=== PATIENT | female | born 1995 | race African-American/Black ===

== ENCOUNTER 2024-03-19 16:22 | Emergency (ER) | payer BC, SELFPAY ==
--- NOTE | ~2024-03-19 | US_ITS ---
EXAMINATION: US OB <= 14 weeks fetus DATE: 03/19/2024 19:00 YOGA COORDINATOR INDICATION: Abdominal pain with a positive test. Ectopic suspected clinically. COMPARISON: None TECHNIQUE: Real-time transabdominal obstetric ultrasound. FINDINGS: 4 para 0 Last menstrual period is given as 01/25/2024 for an estimated date of delivery of 10/31/2024 The uterus measures 9.6 x 9.2 x 8.5 cm. A gestational sac is identified within the uterus. A pole is identified, with a crown-rump length that measures 3.7 cm, corresponding to an approx imate gestational age of 10 weeks and 4 days. cardiac activity is identified at a rate of 165 - 167 bpm. Subchorionic hemorrhage is identified measuring 3.6 x 1.3 x 2.2 cm. The right ovary measures 3.2 x 2.4 x 2.1 cm. The left ovary measures 1.4 x 1.4 x 2.2 cm. Estimated date of delivery by ultrasound is 10/13/2024 IMPRESSION: Single intrauterine gestation with an approximate gestational age of 10 weeks and 4 days, with cardiac activity identified. Large subchorionic hemorrhage (measuring 3.6 cm in greatest dimension) for which short-term follow-up is recommended. Reviewed, dictated and finalized at location A. COORDINATOR IMPRESSION: Single intrauterine gestation with an approximate gestational age of 10 weeks a nd 4 days, with cardiac activity identified. Large subchorionic hemorrhage (measuring 3.6 cm in greatest dimension) for whic h short-term follow-up is recommended.
[2024-03-19 16:50] VITALS: BP 104/75; PULSE 95; RESP 20; TEMP 36.8; O2SAT 100
[2024-03-19 17:06] VITALS: PULSE 93; RESP 18; O2SAT 100
--- NOTE | 2024-03-19 17:06 | ED_ITS ---
HPI - Abdominal Pain General Chief Complaint: Abdominal Pain <Phyllis Nixon INTERIOR DESIGN ASSISTANT - Last Filed: 03/19/24 17:07> Stated Complaint: lower back/abd pain x1w <Phyllis Nixon APRN - Last Filed: 03/19/24 17:07> Time Seen by Provider: 03/19/24 16:45 <Phyllis Nixon INTERIOR DESIGN ASSISTANT - Last Filed: 03/19/24 17:07> Focused HPI: Patient is a 28-year-old female who presents to the ER with a one-week history of abdominal pain and back pain. She denies any urinary symptoms or vaginal discharge. Patient reports she has a history of osteomyelitis where ?they took my jaw bone and put it in my leg. She also endorses diarrhea for the past week. Patient denies chance of . She denies any recent sick contacts. Patient denies back pain, chest pain, shortness of breath, recent fevers. GENERAL: Well-appearing, well-nourished, and in no acute distress. HEAD: Normocephalic, atraumatic. CHEST: Clear to auscultation. ?No respiratory distress. HEART: Regular rate and rhythm.? NEURO: ?Alert and oriented x3. Patient screened in triage and initial orders placed.? ?Additional care and disposition to be based upon?diagnostic testing and treatment. <Phyllis Nixon INTERIOR DESIGN ASSISTANT - Last Filed: 03/19/24 17:07> Focused HPI: Patient is a 28-year-old female who presents to the ER with a one-week history of abdominal pain and back pain. She denies any urinary symptoms or vaginal discharge. Patient reports she has a history of osteomyelitis where ?they took my jaw bone and put it in my leg. She also endorses diarrhea for the past week. Patient denies chance of . She denies any recent sick contacts. Patient denies back pain, chest pain, shortness of breath, recent fevers. GENERAL: Well-appearing, well-nourished, and in no acute distress. HEAD: Normocephalic, atraumatic. CHEST: Clear to auscultation. ?No respiratory distress. HEART: Regular rate and rhythm.? NEURO: ?Alert and oriented x3. Patient screened in triage and initial orders placed.? ?Additional care and disposition to be based upon?diagnostic testing and treatment. <Jill Holman PA-C - Last Filed: 03/19/24 21:09> Source: patient <Jill SpencerAbhi UNRULY Holman - Last Filed: 03/19/24 21:09> Mode of arrival: ambulatory <Jill Holman PA-C - Last Filed: 03/19/24 21:09> Limitations: no limitations <Jill Holman PA-C - Last Filed: 03/19/24 21:09> History of Present Illness HPI narrative: Agree with above HPI. Reports lower abdominal and lower back pain. Has not taken anything for pain. <UNRULY Wilson Last Filed: 03/19/24 21:09> Related Data Allergies/Adverse Reactions: Allergies Allergy/AdvReac Type Severity Reaction Status Date / Time No Known Allergies Allergy Verified 03/19/24 17:00 <Phyllis Nixon APRN - Last Filed: 03/19/24 17:07> Review of Systems 2 Review of Systems: All systems reviewed & are unremarkable except as noted in HPI. <Jill Holman PA-C - Last Filed: 03/19/24 21:09> All systems reviewed & are unremarkable except as noted in HPI and below < Jill Holman PA-C - Last Filed: 03/19/24 21:09> Exam 2 Narrative: GENERAL: Well appearing, well-nourished, non-toxic, in no acute distress. HEAD: Normocephalic, atraumatic. RESPIRATORY: Airway patent, respirations nonlabored. Clear to auscultation bilaterally, no rales, rhonchi, wheezing. CARDIOVASCULAR: Regular rate and rhythm ABDOMINAL: Soft, minimal tenderness throughout lower abdomen. Nondistended. Normoactive BS. MUSCULOSKELETAL: Moves all extremities. No gross deformities. SKIN: Warm, dry, normal color. NEURO: A&O X3. Speech clear. PSYCHIATRIC: Appropriate mood and affect. Normal interaction. <UNRULY Wilson Last Filed: 03/19/24 21:09> Course Vital Signs Vital signs: Vital Signs Temperature 98.3 F 03/19/24 16:50 Pulse Rate 95 03/19/24 16:50 Respiratory Rate 20 03/19/24 16:50 Blood Pressure 104/75 03/19/24 16:50 Pulse Oximetry 100 03/19/24 16:50 Oxygen Delivery Room Air 03/19/24 16:50 Temperature 98.3 F 03/19/24 16:50 Pulse Rate 85 03/19/24 20:31 Respiratory Rate 18 03/19/24 20:31 Blood Pressure 137/78 03/19/24 20:31 Pulse Oximetry 98 03/19/24 20:31 Oxygen Delivery Room Air 03/19/24 16:50 <Phyllis Nixon APRN - Last Filed: 03/19/24 17:07> Vital Signs Temperature 98.3 F 03/19/24 16:50 Pulse Rate 95 03/19/24 16:50 Respiratory Rate 20 03/19/24 16:50 Blood Pressure 104/75 03/19/24 16:50 Pulse Oximetry 100 03/19/24 16:50 Oxygen Delivery Room Air 03/19/24 16:50 Temperature 98.3 F 03/19/24 16:50 Pulse Rate 85 03/19/24 20:31 Respiratory Rate 18 03/19/24 20:31 Blood Pressure 137/78 03/19/24 20:31 Pulse Oximetry 98 03/19/24 20:31 Oxygen Delivery Room Air 03/19/24 16:50 <Jill Holman PA-C - Last Filed: 03/19/24 21:09> MDM - Abdominal Pain MDM Narrative Medical decision making narrative: Patient presented to ED with 1 week history of lower abdominal or back pain. Has not tried anything for pain. Vital signs are stable upon arrival. Patient is in no acute distress. Declined pain meds on my evaluation. Patient's bedside test was positive. She states she was not aware she was . Denies any vaginal bleeding. Her last normal menstrual period was in January, but she notes her cycles are irregular. This would make patient . Patient recently moved to the area and does not currently have an OBGYN. Will refer to on-call OB. Laboratory studies are unremarkable. No leukocytosis. Mild anemia noted. Patient denies any recent bleeding. Stable electrolytes. UA with 6-10 white blood cell count, though moderate squamous cells. Will send for culture and treat given status. Macrobid to pharmacy. Beta hCG around 87K. Ob ultrasound obtained and showing single live IUP, + cardiac activity, 10 weeks, large subchorionic. Discussed lab and imaging findings with patient, need for close follow-up with OB. Advised to call office make appointment. Patient in agreement with plan. Discussed strict return precautions. Discharged in stable condition. <Jill Holman PA-C - Last Filed: 03/19/24 21:09> Medical Records Attestation: I reviewed the patient's medical records. <Jill Holman PA-C - Last Filed: 03/19/24 21:09> Lab Data Attestation: I reviewed the patient's lab results. <Jill Holman PA-C - Last Filed: 03/19/24 21:09> Result diagrams: 03/19/24 17:10 03/19/24 17:10 <Phyllis Nixon APRN - Last Filed: 03/19/24 17:07> Labs: Lab Results 03/19/24 03/19/24 Range/Units 17:10 17:14 WBC 9.2 (4.5-10.0) K/mm3 RBC 3.56 L (4.2-5.4) M/mm3 Hgb 10.9 L (12.0-15.0) g/dL Hct 33.2 L (37.0-47.0) % MCV 93.3 (80-100) fl MCH 30.6 (26-34) pg MCHC 32.8 (32-36) g/dl RDW 12.8 (11.5-14.5) % Plt Count 195 (150-375) k/mm3 MPV 12.3 H (7.4-10.4) fl Immature Gran % (Auto) 0.4 (0-0.5) % Neut % (Auto) 74.6 H (45.5-73.1) % Lymph % (Auto) 18.0 L (18.3-44.2) % [place] % (Auto) 6.3 (2.6-8.5) % Eos % (Auto) 0.5 (0-4.4) % Baso % (Auto) 0.2 (0.2-1.2) % Lymph # (Auto) 1.66 (0.9-3.2) K/mm3 [place] # (Auto) 0.6 (0.1-0.6) K/mm3 Eos # (Auto) 0.1 (0-0.3) K/mm3 Baso # (Auto) 0.0 (0.0-0.1) K/mm3 Abs Immat Gran (auto) 0.04 H (0.00-0.031) K/mm3 Absolute Neuts (auto) 6.9 H (1.3-6.7) K/mm3 Absolute Nucleated RBC 0.000 (0.0-0.012) K/mm3 Nucleated RBC % 0.0 (0.0-0.2) % Sodium 137 (137-145) mmol/L Potassium 4.0 (3.4-5.0) mmol/L Chloride 102 (98-107) mmol/L Carbon Dioxide 26 (22-30) mmol/L Anion Gap 9 (4-12) mmol/L BUN 9 (7-17) mg/dL Creatinine 0.78 (0.7-1.0) mg/dL Estim Creat Clear Calc 88 ml/min Estimated GFR > 60 (59 - ) Glucose 108 (65-110) mg/dL Calcium 8.5 (8.4-10.2) mg/dL Total Bilirubin 0.6 (0.2-1.3) mg/dL AST 16 (14-36) U/L ALT 13 (6-35) U/L Alkaline Phosphatase 53 (38-126) U/L Total Protein 7.0 (6.3-8.2) g/dL Albumin 3.7 (3.5-5.1) g/dL Lipase 54 (23-300) U/L Beta HCG, Quant 40723.00 mIU/ML Urine Color Yellow (Yellow) Urine Appearance Cloudy H (Clear) Urine pH 7.5 (5.0-9.0) Ur Specific Gore 1.015 (1.001-1.035) Urine Protein Negative (Negative) mg/dL Urine Glucose (UA) Negative (Negative) mg/dL Urine Ketones Negative (Negative) mg/dL Ur Blood (Man) Negative (Negative) Urine Nitrate Negative (Negative) Urine Bilirubin Negative (Negative) Urine Urobilinogen 1.0 (<2.0) mg/dL Leukocyte Esterase Rfl 2+ H (Negative) GRAY/UL Urine RBC 0-2 (0-2) /hpf Urine WBC 6-10 H (0-3) /hpf Ur Squamous Epith Cells Moderate (Few) /hpf Urine Bacteria Rare /hpf Urine Casts 0-2 POC Urine HCG, Qual Positive (Negative) <Phyllis Nixon, INTERIOR DESIGN ASSISTANT - Last Filed: 03/19/24 17:07> Lab Results 03/19/24 03/19/24 Range/Units 17:10 17:14 WBC 9.2 (4.5-10.0) K/mm3 RBC 3.56 L (4.2-5.4) M/mm3 Hgb 10.9 L (12.0-15.0) g/dL Hct 33.2 L (37.0-47.0) % MCV 93.3 (80-100) fl MCH 30.6 (26-34) pg MCHC 32.8 (32-36) g/dl RDW 12.8 (11.5-14.5) % Plt Count 195 (150-375) k/mm3 MPV 12.3 H (7.4-10.4) fl Immature Gran % (Auto) 0.4 (0-0.5) % Neut % (Auto) 74.6 H (45.5-73.1) % Lymph % (Auto) 18.0 L (18.3-44.2) % [place] % (Auto) 6.3 (2.6-8.5) % Eos % (Auto) 0.5 (0-4.4) % Baso % (Auto) 0.2 (0.2-1.2) % Lymph # (Auto) 1.66 (0.9-3.2) K/mm3 [place]haw # (Auto) 0.6 (0.1-0.6) K/mm3 Eos # (Auto) 0.1 (0-0.3) K/mm3 Baso # (Auto) 0.0 (0.0-0.1) K/mm3 Abs Immat Gran (auto) 0.04 H (0.00-0.031) K/mm3 Absolute Neuts (auto) 6.9 H (1.3-6.7) K/mm3 Absolute Nucleated RBC 0.000 (0.0-0.012) K/mm3 Nucleated RBC % 0.0 (0.0-0.2) % Sodium 137 (137-145) mmol/L Potassium 4.0 (3.4-5.0) mmol/L Chloride 102 (98-107) mmol/L Carbon Dioxide 26 (22-30) mmol/L Anion Gap 9 (4-12) mmol/L BUN 9 (7-17) mg/dL Creatinine 0.78 (0.7-1.0) mg/dL Estim Creat Clear Calc 88 ml/min Estimated GFR > 60 (59 - ) Glucose 108 (65-110) mg/dL Calcium 8.5 (8.4-10.2) mg/dL Total Bilirubin 0.6 (0.2-1.3) mg/dL AST 16 (14-36) U/L ALT 13 (6-35) U/L Alkaline Phosphatase 53 (38-126) U/L Total Protein 7.0 (6.3-8.2) g/dL Albumin 3.7 (3.5-5.1) g/dL Lipase 54 (23-300) U/L Beta HCG, Quant 67275.00 mIU/ML Urine Color Yellow (Yellow) Urine Appearance Cloudy H (Clear) Urine pH 7.5 (5.0-9.0) Ur Specific Gore 1.015 (1.001-1.035) Urine Protein Negative (Negative) mg/dL Urine Glucose (UA) Negative (Negative) mg/dL Urine Ketones Negative (Negative) mg/dL Ur Blood (Man) Negative (Negative) Urine Nitrate Negative (Negative) Urine Bilirubin Negative (Negative) Urine Urobilinogen 1.0 (<2.0) mg/dL Leukocyte Esterase Rfl 2+ H (Negative) GRAY/UL Urine RBC 0-2 (0-2) /hpf Urine WBC 6-10 H (0-3) /hpf Ur Squamous Epith Cells Moderate (Few) /hpf Urine Bacteria Rare /hpf Urine Casts 0-2 POC Urine HCG, Qual Positive (Negative) <Jill Holman PA-C - Last Filed: 03/19/24 21:09> Imaging Data Attestation: I personally reviewed and interpreted this imaging study as follows: < Jill Holman PA-C - Last Filed: 03/19/24 21:09> Radiologist's impression: ITS Impressions Ultrasound 03/19/24 18:59 IMPRESSION: Single intrauterine gestation with an approximate gestational age of 10 weeks and 4 days, with cardiac activity identified. Large subchorionic hemorrhage (measuring 3.6 cm in greatest dimension) for which short-term follow-up is recommended. <Phyllis Nixon APRN - Last Filed: 03/19/24 17:07> ITS Impressions Ultrasound 03/19/24 18:59 IMPRESSION: Single intrauterine gestation with an approximate gestational age of 10 weeks and 4 days, with cardiac activity identified. Large subchorionic hemorrhage (measuring 3.6 cm in greatest dimension) for which short-term follow-up is recommended. <Jill Holman PA-C - Last Filed: 03/19/24 21:09> Discharge Plan Discharge Clinical Impression: 10 weeks gestation of Subchorionic hematoma in first trimester Qualifiers: Fetus number: single or unspecified fetus Qualified Code(s): O41.8X10 - Other specified disorders of amniotic fluid and membranes, first trimester, not applicable or unspecified <Phyllis Nixon APRN - Last Filed: 03/19/24 17:07> Patient Disposition: Home, Self-Care <Phyllis Nixon APRN - Last Filed: 03/19/24 17:07> Condition: Stable <Phyllis Nixon APRN - Last Filed: 03/19/24 17:07> Instructions: Antibiotic Form, Subchorionic Hemorrhage (ED), at 7 to 10 Weeks (ED) <Phyllis Nixon APRN - Last Filed: 03/19/24 17:07> Additional Instructions: Follow-up with OBGYN for further evaluation and care. Call office to make appointment. You may use Tylenol as needed for pain. Your urine showed possible evidence of infection. Take antibiotics as prescribed. Follow- up with OBGYN for urine culture results. Return to the ED if you experience worsening or severe pain, severe vaginal bleeding, passing out, unable to keep down food or drink, or any other symptoms of concern. <Phyllis Nixon APRN - Last Filed: 03/19/24 17:07> Patient Language: American <Phyllis Nixon APRN - Last Filed: 03/19/24 17:07> Prescriptions: New nitrofurantoin monohyd/m-cryst 100 mg capsule 100 mg PO Q12H 5 Days Qty: 10 0RF Rx Instructions: must administer with a meal/food <Phyllis Nixon APRN - Last Filed: 03/19/24 17:07> Follow-up/Referrals: Gil Ramirez MD [Physician] - (OBGYN) PHYSICIAN NOT ON STAFF,NONSTAFF [Primary Care Provider] - <Phyllis Nixon APRN - Last Filed: 03/19/24 17:07> Time of Disposition: 20:23 <Phyllis Nixon APRN - Last Filed: 03/19/24 17:07> 20:23 <Jill Holman PA-C - Last Filed: 03/19/24 21:09>
[2024-03-19 17:15] LABS: BEDSIDEPREGUCG Positive (Negative)
[2024-03-19 17:19] LABS: Basophils Percent Auto 0.2 % (0.2-1.2); Eosinophils Absolute Auto 0.1 K/mm3 (0-0.3); Eosinophils Percent Auto 0.5 % (0-4.4); Hematocrit 33.2 % (37.0-47.0); Hemoglobin 10.9 g/dL (12.0-15.0); Immature Granulocyte Absolute 0.04 K/mm3 (0.00-0.031); Immature Granulocyte Percent A 0.4 % (0-0.5); Lymphocytes Absolute Auto 1.66 K/mm3 (0.9-3.2); Mean Corpuscular HGB Conc 32.8 g/dl (32-36); Mean Corpuscular Hemoglobin 30.6 pg (26-34); Mean Corpuscular Volume 93.3 fl (80-100); Mean Platelet Volume 12.3 fl (7.4-10.4); Monocytes Absolute Auto 0.6 K/mm3 (0.1-0.6); Monocytes Percent Auto 6.3 % (2.6-8.5); Neutrophils Absolute Auto 6.9 K/mm3 (1.3-6.7); Neutrophils Percent Auto 74.6 % (45.5-73.1); Platelet Count Result 195 k/mm3 (150-375); Red Blood Count 3.56 M/mm3 (4.2-5.4); Red Cell Distribution Width 12.8 % (11.5-14.5); White Blood Count 9.2 K/mm3 (4.5-10.0)
[2024-03-19 17:25] LABS: Add Urine Microscopic? YES; Appearance Urine Cloudy (Clear); Bacteria Urine Rare /hpf; Bilirubin Urine Negative (Negative); Blood Urine Negative (Negative); Color Urine Yellow (Yellow); Glucose Urine UA Negative (Negative); Ketones Urine Negative (Negative); Leukocyte Esterase Ur 2+ LEU/UL (Negative); Nitrate Urine Negative (Negative); Non Pathogenic Casts 0-2; Protein Urine Negative (Negative); RBC Urine 0-2 /hpf (0-2); Specific Grav Ur 1.015 (1.001-1.035); Squamous Epithelial Cell Urine Moderate /hpf (Few); pH Urine 7.5 (5.0-9.0)
[2024-03-19 17:29] LABS: Alanine Aminotransferase 13 U/L (6-35); Albumin Level 3.7 g/dL (3.5-5.1); Alkaline Phosphatase 53 U/L (38-126); Anion Gap 9 mmol/L (4-12); Aspartate Amino Transferase 16 U/L (14-36); Bilirubin,Total 0.6 mg/dL (0.2-1.3); Blood Urea Nitrogen 9 mg/dL (7-17); Calcium 8.5 mg/dL (8.4-10.2); Carbon Dioxide 26 mmol/L (22-30); Chloride 102 mmol/L (98-107); Estimated CRCL calculation 88 ml/min; Estimated Glomerular Filt Rate > 60; Glucose 108 mg/dL (65-110); Lipase 54 U/L (23-300); Sodium 137 mmol/L (137-145)
[2024-03-19 20:31] VITALS: BP 137/78; PULSE 85; RESP 18; O2SAT 98
== END 2024-03-19 20:32 | disposition home or self-care (01) ==
PROVIDERS: Emergency Provider Physician Assistant
DX: O46.8X1 Other antepartum hemorrhage, first trimester (principal); Z3A.10 10 weeks gestation of pregnancy
CPT/HCPCS: 36415; 76801; 80053; 81001; 81025; 83690; 84702; 85025; 87086; 99284